=== PATIENT | female | born 1965 | race Caucasian/White ===

== ENCOUNTER → 2023-10-25 | Emergency (ER) | payer OTHER ==
[~2023-10-25] MED LIST: FENTANYL CITR 100 MCG/2 ML ONE; KETOROLAC 30 MG/ML INJ ONE; MORPHINE 4 MG/ML SYR ONE; NA CHLORIDE 0.9% 1,000 ML ONE; ONDANSETRON 4 MG/2 ML VIAL ONE
[2023-10-25 01:57] LABS: Absolute Lymphocytes (CBC) 1.7 K/uL (0.7-4.9); Hematocrit 40.6 % (36.0-45.0); Lymphocytes % 22.9 % (15.3-44.8); MCV 88.3 fL (80-100); MPV 9.6 fL (7.6-11.3); Platelets 222 thou/uL (152-406); RBC Red Blood Cell Count 4.59 M/uL (3.86-4.86)
[2023-10-25 02:14] LABS: Albumin 3.8 g/dL (3.4-5.0); Bilirubin Total 0.3 mg/dL (0.2-1.0); Potassium 4.6 mEq/L (3.5-5.1); Protein, Total 7.1 g/dL (6.4-8.2)
[2023-10-25 02:39] LABS: Specific Gravity 1.023 (1.005-1.030); Urine Bacteria None Seen /HPF (<20); Urine Bilirubin NEGATIVE (Negative); Urine Blood Negative (Negative); Urine Clarity Clear (Clear); Urine Color Light-Yellow (Yellow); Urine Glucose NEGATIVE (Negative); Urine Protein NEGATIVE (Negative); Urine RBC <5 /HPF (None Seen); Urine Urobilinogen Normal (Normal); Urine pH 6.5 (5.0-7.0)
--- NOTE | 2023-10-25 04:30 | EDPHYS ---
Physician Documentation [facility] Rhianna Name: Ana Delgadillo Age: 58 yrs Sex: Female : 1965 Arrival Date: 10/25/2023 Time: 01:10 Bed 11 Private MD: ED Physician HPI: 10/25 01:37 This 58 yrs old Female presents to ER via Ambulatory with complaints of ec2 Epigastric Pain. 01:37 Patient arrives today for evaluation of upper abdominal pain. Reports the pain started ec2 several hours ago. Reports she is having upper abdominal pain with associated nausea. Patient reports no vomiting. Denies any diarrhea symptoms. Reports no urinary complaints.. Historical: - Allergies: 02:02 Morphine; cg 02:02 Codeine; cg - Immunization history:: Adult Immunizations up to date, Last tetanus immunization: > 10 years ago. - Social history:: Smoking status: Patient denies any tobacco usage or history of. Patient/guardian denies using alcohol, street drugs. ROS: 01:37 Constitutional: as per hpi ec2 Exam: 01:37 Constitutional: GEN: NAD Head: atraumatic Eyes: EOMI Ears: External ears are ec2 normal. CV: regular rate LUNGS: no respiratory distress ABD: non-distended, upper abdominal TTP, right upper quadrant TTP SKIN: no evidence of rashes MSK: no evidence of trauma NEURO: moves all extremities equally Vital Signs: 01:33 BP 142 / 78; Pulse 59; Resp 16; Temp 97.6; Pulse Ox 99% ; Weight 87.04 kg; Height 5 ft. cg 7 in. ; Pain 8/10; 02:30 BP 112 / 66; Pulse 67; Resp 16; Pulse Ox 97% ; Pain 5/10; pf1 03:30 BP 112 / 62; Pulse 70; Resp 16; Pulse Ox 99% on R/A; Pain 2/10; pf1 04:30 BP 107 / 65; Pulse 76; Resp 16; Pulse Ox 96% on R/A; Pain 2/10; pf1 01:33 Body Mass Index 30.06 (87.04 kg, 170.18 cm) cg 01:33 Pain Scale: Adult cg 02:30 Pain Scale: Adult pf1 03:30 Pain Scale: Adult pf1 04:30 Pain Scale: Adult pf1 MDM: 01:37 Data reviewed: vital signs. ED course: Patient arrives today for evaluation of upper ec2 abdominal pain. Examination remarkable for well-appearing nontoxic dividual is otherwise in no acute distress. Will obtain lab work, urine studies, CT imaging as well as ultrasound. Currently evaluating for pancreatitis, gallstone pathology, UTI. Will treat the patient symptoms as well. EKG obtained, independently reviewed and interpreted by me, shows normal sinus rhythm, rate of 62, no acute ST segment elevations, nonconcerning intervals.. 01:39 Patient medically screened. ec2 02:17 ED course: Metabolic profile is reassuring, renal dysfunction noted. CBC reassuring, ec2 lipase within normal ranges. . 02:47 ED course: Urine with leuk esterase present, otherwise not impressively infectious ec2 appearing.. 03:43 ED course: Ultrasound shows cholelithiasis, comment about CBD at 7 mm, patient with ec2 normal LFTs. Doubt stone blockage. Patient with improvement in symptoms after the Toradol administration.. 04:24 ED course: CT abdomen pelvis and ultrasound show gallstones. On reassessment patient ec2 with improvement in symptoms. Will discharge home. Return precautions given.. 18 01:37 Order name: CBC with Diff; Complete Time: 02:17 ec2 18 01:37 Order name: CMP; Complete Time: 02:17 ec2 18 01:37 Order name: Lipase; Complete Time: 02:17 ec2 18 01:37 Order name: Urinalysis w/ reflexes; Complete Time: 02:47 ec2 10/25 02:42 Order name: Urine Culture EDMO 10/25 01:37 Order name: CT Abd/Pelvis - IV Contrast Only ec2 10/25 01:37 Order name: US Abdomen Limited ec2 10/25 01:37 Order name: IV Saline Lock; Complete Time: 02:22 ec2 10/25 01:37 Order name: Labs collected and sent; Complete Time: 02:22 ec2 10/25 01:37 Order name: EKG - Nurse/Tech; Complete Time: 01:38 ec2 Administered Medications: 02:08 Drug: NS 0.9% IV 1000 ml IV at 1 bolus Per protocol; 1000 mL bolus Route: IV; Rate: 1 cg bolus; Site: left antecubital; 03:00 Follow up: Response: No adverse reaction; Marked relief of symptoms; IV Status: pf1 Completed infusion; IV Intake: 1000ml 02:08 Drug: Ondansetron IVP 4 mg IVP once; over 2 minutes Route: IVP; Site: left antecubital; cg 03:00 Follow up: Response: No adverse reaction; Marked relief of symptoms pf1 02:08 Drug: Ketorolac IVP 15 mg IVP once Route: IVP; Site: left antecubital; cg 03:00 Follow up: Response: No adverse reaction; Marked relief of symptoms; Pain is decreased pf1 02:09 Not Given (allergic to morphinee): morphineor iv 4 mg IVP once over 4 mins cg 02:25 Not Given (Patient Refused): fentanyl (pf)100 mcg IVP once cg Disposition Summary: 10/25/23 04:29 Discharge Ordered Notes: Location: Home ec2 Condition: Stable ec2 Diagnosis - Other cholelithiasis without obstruction ec2 Followup: ec2 - With: Private Physician - When: - Reason: Recheck today's complaints Followup: ec2 - With: Alber Crawford MD - When: - Reason: Recheck today's complaints Discharge Instructions: - Discharge Summary Sheet ec2 - Cholelithiasis ec2 Forms: - Medication Reconciliation Form ec2 - Thank You Letter ec2 - Antibiotic Education ec2 - Prescription Opioid Use ec2 - Patient Portal Instructions ec2 - Leadership Thank You Letter ec2 Signatures: Dispatcher [employer] Carolina Mejia, RN RN cg Bertha Caro RN RN pf1 Gerard Tello MD MD ec2
--- NOTE | 2023-10-25 04:30 | ER ---
Nurse's Notes [facility] Rh[place]na Name: Ana Delgadillo Age: 58 yrs Sex: Female : 1965 Arrival Date: 10/25/2023 Time: 01:10 Bed 11 Private MD: Diagnosis: Other cholelithiasis without obstruction Presentation: 10/25 01:33 Chief complaint: Patient states: Pt c/o of Abd pain radiating to right upper side. cg States " I ate chili today and pain started around 2300". C/o indigestion for several days. Coronavirus screen: Vaccine status: Patient reports receiving the 2nd dose of the covid vaccine. Ebola Screen: Patient negative for fever greater than or equal to 101.5 degrees Fahrenheit, and additional compatible Ebola Virus Disease symptoms. Initial Sepsis Screen: Does the patient meet any 2 criteria? No. Patient's initial sepsis screen is negative. Risk Assessment: Do you want to hurt yourself or someone else? Patient reports no desire to harm self or others. Onset of symptoms was October 24, 2023 at 23:00. 01:33 Method Of Arrival: Ambulatory cg 01:33 Acuity: ADALID 3 cg 01:33 Initial Sepsis Screen: Does the patient have a suspected source of infection? No. pf1 Patient's initial sepsis screen is negative. Triage Assessment: 01:35 General: see primary assessment. pf1 Historical: - Allergies: 02:02 Morphine; cg 02:02 Codeine; cg - Immunization history:: Adult Immunizations up to date, Last tetanus immunization: > 10 years ago. - Social history:: Smoking status: Patient denies any tobacco usage or history of. Patient/guardian denies using alcohol, street drugs. Screenin:35 [facility] ED Fall Risk Assessment (Adult) History of falling in the last 3 months, pf1 including since admission No falls in past 3 months (0 pts) Confusion or Disorientation No (0 pts) Intoxicated or Sedated No (0 pts) Impaired Gait No (0 pts) Mobility Assist Device Used No (0 pt) Altered Elimination No (0 pt) Score/Fall Risk Level 0 - 2 = Low Risk Oriented to surroundings, Maintained a safe environment, Educated pt \\T\\ family on fall prevention, incl call for assistance when getting out of bed, Assessed \\T\\ reinforced patient's understanding of fall precautions, Provided non-skid footwear, Hourly rounding (assess needs \\T\\ fall precautionary measures) done, Used ambulatory aids as needed (educated on \\T\\ assisted with), Used gait belt as appropriate. 01:35 Abuse screen: Denies threats or abuse. Nutritional screening: No deficits noted. pf1 Tuberculosis screening: No symptoms or risk factors identified. Assessment: 01:35 General: Appears in no apparent distress. uncomfortable, well groomed, well developed, pf1 Behavior is calm, cooperative, appropriate for age, quiet. 01:35 Pain: Complains of pain in abdomen Pain began 2300 tonight. Neuro: No deficits noted. pf1 Level of Consciousness is awake, alert, obeys commands, Oriented to person, place, time, situation. Cardiovascular: No deficits noted. Capillary refill < 3 seconds Patient's skin is warm and dry. Respiratory: No deficits noted. Airway is patent Trachea midline Respiratory effort is even, unlabored, Breath sounds are clear bilaterally. GI: Abdomen is round non-distended, Bowel sounds present X 4 quads. Reports upper abdominal pain, epigastric pain, nausea. : No deficits noted. No signs and/or symptoms were reported regarding the genitourinary system. EENT: No deficits noted. No signs and/or symptoms were reported regarding the EENT system. Derm: No deficits noted. No signs and/or symptoms reported regarding the dermatologic system. 02:30 Reassessment: Patient appears in no apparent distress at this time. Patient and/or pf1 family updated on plan of care and expected duration. Pain level reassessed. Patient is alert, oriented x 3, equal unlabored respirations, skin warm/dry/pink. Patient states symptoms have improved. 03:30 Reassessment: Patient appears in no apparent distress at this time. Patient and/or pf1 family updated on plan of care and expected duration. Pain level reassessed. Patient is alert, oriented x 3, equal unlabored respirations, skin warm/dry/pink. Patient states feeling better. Patient states symptoms have improved. Vital Signs: 01:33 BP 142 / 78; Pulse 59; Resp 16; Temp 97.6; Pulse Ox 99% ; Weight 87.04 kg; Height 5 ft. cg 7 in. ; Pain 8/10; 02:30 BP 112 / 66; Pulse 67; Resp 16; Pulse Ox 97% ; Pain 5/10; pf1 03:30 BP 112 / 62; Pulse 70; Resp 16; Pulse Ox 99% on R/A; Pain 2/10; pf1 04:30 BP 107 / 65; Pulse 76; Resp 16; Pulse Ox 96% on R/A; Pain 2/10; pf1 01:33 Body Mass Index 30.06 (87.04 kg, 170.18 cm) cg 01:33 Pain Scale: Adult cg 02:30 Pain Scale: Adult pf1 03:30 Pain Scale: Adult pf1 04:30 Pain Scale: Adult pf1 ED Course: 01:13 Patient arrived in ED. kj1 01:29 Gerard Tello MD is Attending Physician. ec2 01:35 Patient has correct armband on for positive identification. Placed in gown. Bed in low pf1 position. Call light in reach. 01:35 Arm band placed on right wrist. pf1 01:37 Triage completed. cg 02:22 Inserted saline lock: 20 gauge in left antecubital area, using aseptic technique. Blood pm6 collected. 02:30 Urinalysis w/ reflexes Sent. cg 02:32 US Abdomen Limited In Process Unspecified. EDMS 02:36 CT Abd/Pelvis - IV Contrast Only In Process Unspecified. EDMS 02:57 Urine Culture Sent. cg 04:29 Alber Crawford MD is Referral Physician. ec2 04:39 No provider procedures requiring assistance completed. IV discontinued, intact, pf1 bleeding controlled, No redness/swelling at site. Pressure dressing applied. 04:39 Provided Education on: follow up with general surgery. pf1 Administered Medications: 02:08 Drug: NS 0.9% IV 1000 ml IV at 1 bolus Per protocol; 1000 mL bolus Route: IV; Rate: 1 cg bolus; Site: left antecubital; 03:00 Follow up: Response: No adverse reaction; Marked relief of symptoms; IV Status: pf1 Completed infusion; IV Intake: 1000ml 02:08 Drug: Ondansetron IVP 4 mg IVP once; over 2 minutes Route: IVP; Site: left antecubital; cg 03:00 Follow up: Response: No adverse reaction; Marked relief of symptoms pf1 02:08 Drug: Ketorolac IVP 15 mg IVP once Route: IVP; Site: left antecubital; cg 03:00 Follow up: Response: No adverse reaction; Marked relief of symptoms; Pain is decreased pf1 02:09 Not Given (allergic to morphinee): morphineor iv 4 mg IVP once over 4 mins cg 02:25 Not Given (Patient Refused): fentanyl (pf)100 mcg IVP once cg Medication: 04:39 VIS not applicable for this client. pf1 Intake: 03:00 IV: 1000ml; Total: 1000ml. pf1 Outcome: 04:29 Discharge ordered by . ec2 04:39 Discharged to home ambulatory, with family, pf1 04:39 Condition: improved 04:39 Discharge instructions given to patient, Instructed on discharge instructions, follow up and referral plans. Demonstrated understanding of instructions, follow-up care, 04:39 Patient left the ED. pf1 Signatures: Dispatcher [employer] Carolina Mejia, RN RN Vika Workman1 Bertha Caro RN RN pf1 Gerard Tello MD MD ec2 Dorina Sanchez pm6
[2023-10-25 05:06] VITALS: BP 142/78; TEMP 97.6; O2SAT 99
--- NOTE | 2023-10-26 10:57 | EKG ---
Test Date: 2023-10-25 Test Time: 01:34:35 Account Relationship Manager: KADEN MEASUREMENT RESULTS: Intervals: Rate: 62 [place]: 156 QRSD: 84 QT: 422 QTc: 428 [place]: P: 61 [place]: 156 QRS: 77 T: 88 INTERPRETIVE STATEMENTS: Normal sinus rhythm Nonspecific ST abnormality Abnormal ECG No previous ECG available for comparison Electronically Signed On 10-26-23 10:55:59 COMMERCIAL CENTER MANAGER by Yehuda Redmond
--- NOTE | 2023-10-26 11:08 | RAD REPORT ---
EXAM DESCRIPTION: CT - Abdomen Pelvis W Contrast - 10/25/2023 6:44 am CLINICAL HISTORY: ABD PAIN COMPARISON: None. TECHNIQUE: CT ABDOMEN PELVIS WITH IV CONTRAST on 10/25/2023 1:37 AM POLICY CANCELLATION CLERK This exam was performed according to our departmental dose-optimization program, which includes autom ated exposure control, adjustment of the mA and/or kV according to patient size and/or use of iterati ve reconstruction technique. FINDINGS: Lower lungs are clear. Abdomen: The liver is normal in appearance. There is no biliary dilatation. Gallbladder contains a ga llstone. The pancreas and spleen are normal in appearance. Adrenal glands are normal. Kidneys are mil dly atrophic. 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 Abdominal aorta is normal in course and caliber without aneurysm. There is no free air. There is no r etroperitoneal adenopathy. Pelvis: There is large amount of stool throughout the colon. Urinary bladder is unremarkable. There i s no free fluid. Uterus appears to be retroverted. Appendix is normal. Skeleton: There are no acute osseous findings. No suspicious bony lesions. IMPRESSION: Cholelithiasis. Electronically signed by: Shade Velasquez MD 10/25/2023 03:39 AM POLICY CANCELLATION CLERK Due to temporary technical issues with the PACS/Fluency reporting system, reports are being signed by the in house radiologist without review as a courtesy to ensure prompt reporting. The interpreting r adiologist is fully responsible for the content of the report.
--- NOTE | 2023-10-26 11:21 | RAD REPORT ---
EXAM DESCRIPTION: US - Abdomen Exam Limited - 10/25/2023 2:30 am CLINICAL HISTORY: Ruq abd pain COMPARISON: None. TECHNIQUE: US ABDOMEN LIMITED 10/25/2023 1:37 AM HOUSEKEEPING WORKER FINDINGS: Gallbladder contains a 1.6 cm gallstone. Gallbladder is otherwise normally distended witho ut wall thickening or pericholecystic fluid. Common bile duct measures 7 mm. IMPRESSION: Cholelithiasis. Electronically signed by: Shade Velasquez MD 10/25/2023 03:35 AM HOUSEKEEPING WORKER Due to temporary technical issues with the PACS/Fluency reporting system, reports are being signed by the in house radiologist without review as a courtesy to ensure prompt reporting. The interpreting r adiologist is fully responsible for the content of the report.
== END ==
LOC: ER 01:10
DX: K80.80 Other cholelithiasis without obstruction (principal); Z88.5 Allergy status to narcotic agent
CPT/HCPCS: 93005; 87088; 85025; 81001; 87086; 36415; 83690; 80053; 74177; 76705; Q9967; J2405; J7030; J3010